=== PATIENT | female | born 1970 | race Caucasian/White ===

== ENCOUNTER 2016-06-30 14:37 | Emergency (ER) | payer MEDICAID, MEDICARE ==
[~2016-06-30] VITALS: Ht 162.6 cm; Wt 145.4 kg
[2016-06-30 14:41] VITALS: BP 128/94; PULSE 94; RESP 20; O2SAT 99
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
[2016-06-30] MEDS ORDERED: LORazepam 2 mg Tablet PO ONE (15:45)
[2016-06-30 16:22] LABS: BASOPHILS % (AUTO) 0.2 % (0-3); EOSINOPHILS % (AUTO) 0.3 % (0-5); MONOCYTES % (AUTO) 6.9 % (4-12); Mean Corpuscular Hemoglobin 28.2 pg (27.0-35.0); Mean Corpuscular Volume 84.8 fL (81-100); NEUTROPHILS % (AUTO) 58.2 % (40-74); Platelet Count 240 bil/L (150-400)
[2016-06-30] MEDS ORDERED: LORazepam 1 mg Tablet PO ONE (17:30)
[2016-06-30] MEDS ORDERED: OLANZapine Zydis ODT 5 mg Tablet PO ONE (17:30)
[2016-06-30 18:57] VITALS: BP 118/88; PULSE 71; O2SAT 97
[2016-06-30] MEDS ORDERED: BusPIRone 15 mg Dividose Tablet PO ONE (19:20)
[2016-06-30 21:59] VITALS: BP 121/94; PULSE 79; O2SAT 99
[2016-06-30 22:44] VITALS: BP 125/92; PULSE 81; O2SAT 94
--- NOTE | 2016-07-01 00:03 | ER ---
[address] [address] EMERGENCY DEPT ADMIT NOTE PATIENT: AARON KUMARI : 1970 MR#: [id number] ADMIT: 06/30/2016 JOB ID: [id number] ADDENDUM TO T-SHEET: DATE OF SERVICE: 06/30/2016. This is to indicate the [employer] [facility] is entirely down and I cannot access records or computer is I am dictating an addendum. Briefly, this is a 45-year-old female with a history of mild mental illness, as well as polysubstance abuse, who presents complaining that she feels overwhelmed and intermittently suicidal with thoughts of jumping into traffic, mainly over the fact that she feels that she has ruined her life secondary to methamphetamine abuse, and is seeking assistance. She reports she last used meth five days ago, later corrected to three days ago. It turns out that she has been using meth while her family was out of town and living in their house, so they are quite upset at her as well, as an acute stressor. She reports prior attempts years ago in the past, as well as a recent attempt, to kill herself through methamphetamine overdose a few weeks ago, for which she was reportedly seen in [place] and subsequently discharged. She has no current specific plan other than the vague thoughts of the car, just feels anxious and overwhelmed. On exam, she is anxious, tearful and mildly restless, but otherwise well appearing. Her vitals are normal. Her blood work is normal, except for TSH which is high-and it turns out this is in part because the patient is on a number of medications which she had self-discontinued several months ago, and this included her thyroid replacement. She does have a list of medications which have now been put on the chart. She received a dose of lorazepam after she gave a urine tox, she was seen by crisis/social service agency director, but there are no beds available today at crisis, but the social service agency director has been able to arrange for chemical dependency coil winder repair to come out tomorrow at 2 p.m., or thereabouts, for a recheck as the family that brought the patient in says they are absolutely not taking her back, she refuses to leave and continues to make vague thoughts of suicidal ideation though she does not get help for her methamphetamine and substance abuse. Both the DENTAL EQUIPMENT REPAIRER and I are of the impression the patient's really major issue is substance abuse, not a formal psychiatric one, and it is not clear if she would really benefit from psychiatric hospitalization in our opinion at this time, so the plan is to continue work on seeing if a bed becomes available at crisis and have chemical dependency evaluate her and see what resources might be available. The patient has been restarted on her regular medicines, I had provided her a single dose of olanzapine to help her settle down olanzapine is one of the medications that she normally is supposed to take at 20 mg a day. She received only 15 mg of the dose rather than the 20 because I had already dosed her earlier with the olanzapine. She did develop a little bit of insomnia and requested some medication. I had given a dose of hydroxyzine for this. The patient is being turned over to Dr. Garves at change of shift INITIAL IMPRESSION: 1. Polysubstance abuse. 2. Medication noncompliance. 3. Chronic hypothyroidism. 4. Suicidal ideation.
[2016-07-01 02:10] VITALS: BP 127/87; PULSE 63; O2SAT 96
[2016-07-01 05:05] VITALS: BP 130/70; PULSE 64; RESP 18; O2SAT 98
[2016-07-01 06:18] LABS: Hepatitis A Antibody IgM Negative (Negative); Hepatitis B Core Antibody IgM Negative (Negative)
[2016-07-01 09:02] VITALS: BP 121/83; PULSE 64; RESP 16; O2SAT 97
[2016-07-01 14:15] VITALS: BP 118/65; PULSE 67; RESP 16; O2SAT 97
[2016-07-01] MEDS ORDERED: LEVO88TA28 PO (14:55)
[2016-07-01 19:08] VITALS: BP 138/93; PULSE 64; O2SAT 95
== END 2016-07-01 19:09 | disposition home or self-care (01) ==
LOC: SED 14:37
DX: F19.10 Other psychoactive substance abuse, uncomplicated (principal); R45.851 Suicidal ideations; E03.9 Hypothyroidism, unspecified; Z91.19 Patient's noncompliance with other medical treatment and regimen; F43.10 Post-traumatic stress disorder, unspecified; Z88.5 Allergy status to narcotic agent; Z88.8 Allergy status to other drugs, medicaments and biological substances
CPT/HCPCS: 36415; 80053; 84439; 84443; 84703; 85025; 86705; 86709; 87340; 87341; 90791; 99284; G0472; G0480; Q0177

== ENCOUNTER 2016-10-06 03:33 | Inpatient (IN) | payer MEDICARE, MEDICAID ==
[2016-10-06] VITALS (9 sets, daily range): BP systolic 106–142; BP diastolic 60–74; PULSE 80–108; RESP 16–24; O2SAT 93–100
[~2016-10-06] VITALS: Ht 162.6 cm; Wt 128.2 kg
[~2016-10-06 03:33] MED LIST: LEVO88TA28 PO
--- NOTE | 2016-10-06 03:48 | ED.REPORT ---
HPI-Abd Pain F 40 and Over Date of Service Oct 06, 2016 ED Provider: Dr. Gilbert Love The patient is a 45 year old female with a history of anxiety, PTSD, depression , bipolar disorder, endometriosis, and SBO s/p suicide attempt by overdose (x5) and several abdominal surgeries presents to the ED due to midsternum chest and abdominal pain that radiates to the back. The pain has been intermittent since yesterday and increased in severity over the last few hrs. Pt reports pain with inhalation. She went to her PCP last week and was diagnosed with costochondritis. Nursing Notes Stated Complaint: ABDOMINAL PAIN Chief Complaint: General Complaint Nursing Notes Reviewed: Yes Allergies: Coded Allergies: droperidol (Verified Allergy, Severe, 10/06/16) metoclopramide (Verified Allergy, Severe, 10/06/16) prochlorperazine (Verified Allergy, Severe, 10/06/16) codeine (Verified Allergy, Mild, 10/06/16) morphine (Verified Allergy, Mild, 10/06/16) Scheduled Levothyroxine (Levoxyl) 88 Mcg Tablet 88 MCG PO DAILY General Time Seen by MD: 03:47 Chief Complaint Other (chest pain) Hx Obtained From: Patient Arrived By: Walk-in Sudden in Onset?: Yes Onset Occurred: Yesterday Symptom Duration: Since onset Progression since Onset: Gradually worsening Location: : Epigastric Quality: Painful Radiation: : Back Severity: Current: Moderate Recent Healthcare: Recent doctor visit Similar Sx Previous: Yes Past Medical History Past Medical History Notes: 06/30/16: Patient's states that she stopped her medicines 3-4 months ago, she thought that that would help her better-and tells me the list of medication she is supposed to be taking includes: Abilify Clonidine BuSpar Zoloft Olanzapine Levoxyl Estrogen Past Medical History Suicide attempts by overdose Hx SBO Past Surgical History Gastric bypass Strangulated bowel Hernia repair with mesh Endometriosis surgeries Cholecystectomy Partial colectomy "I have had 17 surgeries, those are the ones I remember" - 06/30/16 Reports: Cholecystectomy Smoking History Never Smoker Social History 06/30/16: "I have occasionally, and rarely use heroin once in a while, but I do meth regularly and it is my drug of choice". Denies IVDA Denies legal problems Alcohol Use: "Social" Drug Use: Meth Ambulatory Status Independent Review of Systems Constitutional: Denies: Chills, Fever Cardiovascular: Reports: Chest pain GI: Reports: Abdominal pain, Denies: Vomiting Musculoskeletal: Reports: Back pain Complete sys rev & neg: except as marked. Physical Exam Vital Signs Vital Signs (First) Date Time Temp Pulse Resp B/P Pulse Ox O2 Delivery O2 Flow Rate FiO2 10/06/16 03:40 37.5 108 17 142/64 100 Room Air Initial VS: Reviewed General/Constitutional: Awake, Alert Behavior: Positive: Anxious Appearance / Presentation: Positive: Obese, morbidly obvious discomfort no physiological distress bicycle peddling in pain wretching intermittently no veins identifiable Respiratory / Chest: Atraumatic, Breath sounds NL, Breath sounds = bilat, No respiratory distress Cardiovascular: Heart rate NL, Regular rhythm, Heart sounds NL Tenderness/Guarding/Rebound: Positive: Tender epigastric (to minimal palpation) Back: Atraumatic, Inspection NL, Non-tender Head / Eyes: Atraumatic, Normocephalic, PERRL, EOMI ENT: Atraumatic, Airway patent, Mucous membranes moist, Pharynx NL Skin: Atraumatic, Warm, Dry Neurologic: Oriented X3, Speech NL, No motor deficits Upper Extremity / MS: Atraumatic, Inspection NL, No deformity Lower Extremity / Pelvis / MS: Atraumatic, Inspection NL, No deformity Interpretation & Diagnostics Interpretation & Diagnostics: Utox clean Lab Results Interpretation Result Diagram: 10/06/16 0500 10/06/16 0500 Test 10/06/16 05:00 10/06/16 05:52 White Blood Count 7.9th/mm3 (3.8-10.1) Red Blood Count 4.04mil/mm3 (3.90-5.20) Hemoglobin 10.2g/dL (12.0-15.6) Hematocrit 33.4% (35.0-46.0) Mean Corpuscular Volume 82.7fL (81-100) Mean Corpuscular Hemoglobin 25.2pg (27.0-35.0) Mean Corpuscular Hemoglobin Concent 30.5% (32.0-37.0) Red Cell Distribution Width 15.7% (12.3-15.4) Platelet Count 237bil/L (150-400) Neutrophils (%) (Auto) 94.6% (40-74) Lymphocytes (%) (Auto) 3.3% (14-46) Monocytes (%) (Auto) 1.9% (4-12) Eosinophils (%) (Auto) 0.1% (0-5) Basophils (%) (Auto) 0% (0-3) Prothrombin Time 10.6sec (8.1-12.5) Prothromb Time International Ratio 0.99ratio Sodium Level 139mEq/L (134-144) Potassium Level 4.3mEq/L (3.5-5.2) Chloride Level 105mEq/L (97-108) Carbon Dioxide Level 20mmol/L (18-29) Blood Urea Nitrogen 20mg/dL (6-24) Creatinine 0.65mg/dL (0.57-1.00) Estimat Glomerular Filtration Rate 142mL/min (>59) Glucose Level 97mg/dL (60-99) Lactic Acid Level 1.4mmol/L (0.4-2.0) Calcium Level 8.9mg/dL (8.5-10.1) Magnesium Level 1.8mg/dL (1.6-2.6) Total Bilirubin 2.2mg/dL (0.0-1.2) Aspartate Amino Transf (AST/SGOT) 1357U/L (0-50) Alanine Aminotransferase (ALT/SGPT) 634U/L (0-32) Alkaline Phosphatase 328U/L (25-150) Total Creatine Kinase 62U/L (21-215) Total Protein 6.8g/dL (6.4-8.4) Albumin 3.8g/dL (3.4-5.0) Lipase 99U/L (13-60) Urine Color Dark yellow (YELLOW) Urine Appearance Clear (CLEAR,HAZY) Urine pH 5.5 (5.0-8.0) Urine Specific [place] 1.025 (1.003-1.035) Urine Protein Tracemg/dL (NEG,TRACE) Urine Glucose (UA) Negativemg/dL (NEGATIVE) Urine Ketones Negativemg/dL (NEGATIVE) Urine Occult Blood Negative (NEGATIVE) Urine Nitrite Negative (NEGATIVE) Urine Bilirubin Moderate (NEGATIVE) Urine Ictotest Positive (Negative) Urine Urobilinogen 4.0mg/dL (NORMAL) Urine Leukocyte Esterase Negative (NEGATIVE) Urine RBC 0-2/hpf (0-2) Urine WBC 0-5/hpf (0-5) Urine Epithelial Cells Many/hpf (NONE-MOD) Urine Crystals None seen (NONE SEEN) Urine Bacteria Many/hpf (NONE-FEW) Urine Hyaline Casts None/lpf (NONE) Urine Granular Casts None seen (NONE SEEN) Urine Waxy Casts None seen (NONE SEEN) Urine Red Blood Cell Casts None seen (NONE SEEN) Urine White Blood Cell Casts None seen (NONE SEEN) Urine Mucus None seen (None Seen) Urine Trichomonas None seen (NONE SEEN) Urine Yeast None (NONE SEEN) Urine Culture Reflexed Indicated ECG Interpretation ECG Interpretation: Prolonged QT interval Time: 05:09 Interpreted by: ED physician Rhythm / Conduction: Tachycardia (rate 100) Procedures Peripheral / EJ IV Start Peripheral / EJ IV Start: US guided Time: 04:50 Procedure Performed by: ED physician IV Site: External jugular left Re-Eval/Medical Decision Med Decision/Clinical Course 46-year-old with epigastric pain radiating to her back, prior history of multiple surgeries, proves to have multiple liver function abnormalities. She is transferred to Dr. Cuevas this morning for completion of her evaluation with CT pending at this time. Re-Evaluation/Progress #1: Time of Eval: 04:50 Re-Evaluation/Progress Note: Ultra sound guided left external jugular IV. Patient tolerated procedure well. Re-Evaluation/Progress #2: Time of Eval: 08:39 )( Re-Eval Abdomen: Soft, Tenderness Patient Status: Condition unchanged Re-Evaluation/Progress Note: Care assumed at [address] scan results are now available and show slight wall thickening of the ascending and descending colon concerning for colitis. No evidence of appendicitis. Patient is interviewed and reexamined. She has moderate abdominal pain without rebound or guarding not significantly changed. She does report that she has been having intermittent symptoms for approximately a month including diarrhea. She does report that she has had recent antibiotics. Given her elevated transaminases alkaline phosphatase lipase and bilirubin along with the colon inflammation will admit her for further evaluation. Presumptive diagnosis of colitis, pancreatitis is certainly a possibility. No explanation for the liver abnormalities. She is status post cholecystectomy. Dr Cuevas Consultation : Consulted With: Hospitalist Call Returned at: 08:59 Pole Peeler: Will see patient Note: Dr Arana Counseled Regarding: Diagnosis, Lab results, Need for follow-up, When/why to return to ED Discharge & Departure Shift Change Sign-Out Patient Care Transferred: Yes (to Dr Cuevas) Discussed Complaint(s): Yes Laboratory Evaluation: Ordered, not yet done Imaging Studies: Ordered, not yet done Primary Impression: Abdominal pain Additional Impression: Liver function test abnormality Disposition: ADMITTED TO HOSPITAL Discharge Condition All VS Reviewed: Yes Condition: Stable Referrals: [facility] (PCP) Care Transferred to: Dr. Clementine Cuevas Care Transferred at: 06:01 Scribe Attestation Portion of this note were transcribed by Brenna Scales. I, Dr. Love, personally performed the history, physical exam, and medical decision-making: I reviewed and confirmed the accuracy for the information in the transcribed note. Signed by: jessica Stone, 10/06/16 0500 copies to: [facility] Gilbert Love MD Oct 06, 2016 03:48 Brenna Scales Oct 06, 2016 04:04 Clementine Cuevas MD Oct 06, 2016 06:34
[2016-10-06] MEDS ORDERED: 0.9% Sodium Chloride 1,000 ML IV ONE ×2 (04:04→05:40)
[2016-10-06] MEDS ORDERED: Ketorolac 15 mg/mL Inj IVPUSH ONE ×2 (04:05→06:05)
[2016-10-06] MEDS ORDERED: Ondansetron 2 mg/mL 2 mL Inj IVPUSH ONE (04:05)
[2016-10-06] MEDS ORDERED: Pantoprazole 4 mg/mL 10 mL Inj IVPUSH ONE ×2 (04:05→11:30)
[2016-10-06] MEDS ORDERED: Iohexol 300 mg/mL 30 mL Inj PO ONE (04:20)
[2016-10-06] MEDS ORDERED: Ondansetron 8 mg ODT Tablet ONE (04:49)
[2016-10-06 05:13] LABS: BASOPHILS % (AUTO) 0 % (0-3); EOSINOPHILS % (AUTO) 0.1 % (0-5); MONOCYTES % (AUTO) 1.9 % (4-12); Mean Corpuscular Hemoglobin 25.2 pg (27.0-35.0); Mean Corpuscular Volume 82.7 fL (81-100); NEUTROPHILS % (AUTO) 94.6 % (40-74); Platelet Count 237 bil/L (150-400)
[2016-10-06 05:39] LABS: INR 0.99 ratio
[2016-10-06 05:56] LABS: Magnesium 1.8 mg/dL (1.6-2.6)
[2016-10-06 06:36] LABS: APPEARANCE,URINE CLEAR (CLEAR,HAZY); COLOR,URINE DARK YELLOW (YELLOW); OCCULT BLOOD,URINE NEGATIVE (NEGATIVE)
[2016-10-06 06:37] LABS: ICTOTEST,URINE POSITIVE (Negative); PH,URINE 5.5 (5.0-8.0)
--- NOTE | 2016-10-06 09:02 | DRSVH ---
PROCEDURE: CT ABDOMEN AND PELVIS WITH CONTRAST (PNL-7102) INDICATIONS: abdo pain, post gastric bypass TECHNIQUE: After the administration of oral and intravenous contrast, 5 mm thick sections acquired from the diap hragms to the symphysis. 5 mm thick coronal and sagittal reformats were performed. For radiation do se reduction, the following was used: automated exposure control, adjustment of mA and/or kV accordi ng to patient size. COMPARISON: None. FINDINGS: Image quality: Excellent. ABDOMEN: Lung bases: Lung bases are clear. Heart size is normal. Solid organs: Liver and spleen are normal in size and enhancement. Gallbladder surgically absent. Biliary system is non-dilated. Pancreas enhances normally. No adrenal nodules. Kidneys are normal in size and enhancement, without hydronephrosis. Peritoneum and bowel: Small amount of residual oral contrast material present in the distal esophagu s. There are postsurgical changes related to patient's history of gastric bypass. There is mild desce nding and descending colonic wall thickening with adjacent fat stranding and trace fluid seen in the left paracolic gutter. The appendix is upper limits of normal, technically indeterminate recommend cl inical/laboratory correlation. However, no periappendiceal stranding is seen. No evidence of bowel ob struction Nodes and vessels: No retroperitoneal or mesenteric adenopathy. Aorta and inferior vena cava are no rmal in caliber. Miscellaneous: Postsurgical changes related to presumed ventral hernia repair, with abdominal mesh. T here is midline intra-abdominal postsurgical stranding and change PELVIS: Genitourinary: The bladder is decompressed therefore unremarkable. Miscellaneous: No inguinal hernias or adenopathy. Bones: No suspicious bony lesions. No vertebral body compression fractures. IMPRESSION: Mild diffuse colonic wall thickening involving the ascending and descending segments as above raising possibility of infectious/inflammatory (less likely ischemic) colitis. Trace fluid along the left pa racolic gutter. Appendix at upper limits of normal in size, although no periappendiceal inflammatory change and this could be an anatomic variation in the appropriate clinical setting. Please correlate clinically. Status post cholecystectomy. No evidence of bowel obstruction. No abscess. Dictated by: Vj Kolb M.D. on 10/06/2016 at 8:55 Approved by: Vj Kolb M.D. on 10/06/2016 at 9:01
[2016-10-06 09:29] LABS: Bilirubin, Direct 1.6 mg/dL (0.0-0.3)
[2016-10-06] MEDS ORDERED: levoFLOXacin Inj 750 MG in IV Premix 1 EACH IV ONE (09:50)
[2016-10-06] MEDS ORDERED: metroNIDAZOLE Inj 1,000 MG in IV Premix 1 EACH IV ONE (09:50)
[2016-10-06] MEDS ORDERED: HYDR12.5 PO (10:50)
[2016-10-06] MEDS ORDERED: BUSP15TA3 PO (10:50)
[2016-10-06] MEDS ORDERED: TRAZ-115 PO ×2 (10:50)
[2016-10-06] MEDS ORDERED: ESTR1TAB24 PO (10:50)
[2016-10-06] MEDS ORDERED: NAPR550T44 PO (10:50)
[2016-10-06] MEDS ORDERED: ARIP10TA14 PO (10:50)
[2016-10-06] MEDS ORDERED: SERT50TA PO (10:50)
--- NOTE | 2016-10-06 10:51 | NUR ---
Admit Pt. arrived to 239-1 at 0952. Pt. alert and orriented. IJ site to left neck. Pt. reporting pain to upper chest and sternal area, radiating to back and lower belly; rated 7/10. Pt. reporting that she is "scared and nervous, very anxious." Pt. oriented to bed and room. Med rec completed; education booklet given on Advanced Directives. Pt. currently in bed, with parents at the bedside. Reported back to sydnie Moss RN to continue care.
--- NOTE | 2016-10-06 11:13 | PCM.HPMED ---
Subjective Date of Service Oct 06, 2016 Primary Provider: Admitting Physician: Colleen Arana MD Primary Care Physician: [facility] Attending Physician: Colleen Arana MD Chief Complaint: Epigastric pain, dry heaving, diarrhea History of Present Illness: 46-year-old female with multiple psychiatric disease, former math and alcohol abuser, recently finished drug rehabilitation p/w epigastric pain, dry heaves, diarrhea Patient stated that 2 weeks ago patient went to see PCP, complaining of chest pain. Therefore patient went to [facility] ED, patient underwent basic workup to rule out TN, diagnosed costochondritis. Since then patient took naproxen for a few days until 10 days ago. Yesterday, she will start noticing similar symptoms more on her epigastric area, radiated to her chest to her jaws, bilateral shoulder, her back, continued to have dry heaves, no vomiting. pain was more pressure like, pt took naproxen 500mg one tab twice day yesterday but pain continued, decided to come to ED. Pt was also resides in inpatient drug rehab in [facility] until recently but currently stayed with paraents who confirmed that pt has been really sober for her drugs, alcohols. Patient also c/o loose stools or watery diarrhea for few weeks, started 1/d but yesterday it was 3-4 times a day, brown, watery, no mucus/blood. pt also c/o suprapubic pain when urinated, mild urge, stated that she was diagnosed with interstitial cystitis, follow up . no history of heart disease and pulmonary disease. ROS: Denies fever, chills, chest pain, cough, sputum, no recent travel/sick contacts. In the emergency room, BP 140s, tachy to 108, afebrile, 100% onRA, labs were remarkable for transaminitis, elevated eulalio, LDH, PCT0.39, mild anemia, normal wbc but high poly. Review of Systems: Pertinent positives as noted in history of present illness. All other systems were reviewed and are negative Allergies Coded Allergies: droperidol (Verified Allergy, Severe, 10/06/16) metoclopramide (Verified Allergy, Severe, 10/06/16) prochlorperazine (Verified Allergy, Severe, 10/06/16) Sulfa (Sulfonamide Antibiotics) (Verified Allergy, Intermediate, hives, vomit, 10/06/16) erythromycin base (Verified Allergy, Intermediate, hives, 10/06/16) amoxicillin (Verified Allergy, Mild, hives, 10/06/16) codeine (Verified Allergy, Mild, 10/06/16) morphine (Verified Allergy, Mild, 10/06/16) Home Medications Abilify 10 mg daily Spironolactone 50 mg 3 times a day Estradiol deal 1 tablets daily Hydrochlorothiazide 12.5 mg daily Levothyroxine 88 g daily Naproxen 550 mg twice a day when necessary Sertraline 50 mg daily Trazodone 50 mg daily at bedtime Trazodone 12.5 mg every 4 when necessary PMH As described above in history of present illness Surgical History Gastric bypass Sigmoidectomy Surgery for strangulated bowels Umbilical hernia surgery twice Cholecystectomy Endometriosis surgery 6 times Hysterectomy Family History No history of CAD, inflammatory bowel disease Social History Hx Alcohol Use: Yes Hx Substance Use: Yes (meth, heroin-smoked, alcohol) Hx Tobacco Use: No Smoking Status: Never Smoker Additional Information Currently stays with parents Exam Vital Signs Vital Sign - Last Date Time Temp Pulse Resp B/P Pulse Ox O2 Delivery O2 Flow Rate FiO2 10/06/16 09:48 37.3 89 18 117/60 97 Room Air Intake and Output 10/05/16 10/05/16 10/06/16 Cumulative From/Thru 15:00 23:00 07:00 10/06/16 03:40 - 10/06/16 05:46 Intake Total 2000 ml 2000 ml Balance 2000 ml 2000 ml Intake IV Total 2000 ml 2000 ml Exam NAD, comfortably laying down on the bed no JVD, MMM, no LAD RRR, nl s1, s2 no mrg CTAB, no w,c S,ND,NT,normoactive BS+ warm, no edema, pulses 2/2 Lab and Diagnostics Result Diagram: 10/06/16 0500 10/06/16 0500 X-Rays, CTs and MRIs ROCEDURE: CT ABDOMEN AND PELVIS WITH CONTRAST ([id number]) INDICATIONS: abdo pain, post gastric bypass TECHNIQUE: After the administration of oral and intravenous contrast, 5 mm thick sections acquired from the diaphragms to the symphysis. 5 mm thick coronal and sagittal reformats were performed. For radiation dose reduction, the following was used : automated exposure control, adjustment of mA and/or kV according to patient size. COMPARISON: None. FINDINGS: Image quality: Excellent. ABDOMEN: Lung bases: Lung bases are clear. Heart size is normal. Solid organs: Liver and spleen are normal in size and enhancement. Gallbladder surgically absent. Biliary system is non-dilated. Pancreas enhances normally. No adrenal nodules. Kidneys are normal in size and enhancement, without hydronephrosis. Peritoneum and bowel: Small amount of residual oral contrast material present in the distal esophagus. There are postsurgical changes related to patient's history of gastric bypass. There is mild descending and descending colonic wall thickening with adjacent fat stranding and trace fluid seen in the left paracolic gutter. The appendix is upper limits of normal, technically indeterminate recommend clinical/laboratory correlation. However, no periappendiceal stranding is seen. No evidence of bowel obstruction Nodes and vessels: No retroperitoneal or mesenteric adenopathy. Aorta and inferior vena cava are normal in caliber. Miscellaneous: Postsurgical changes related to presumed ventral hernia repair, with abdominal mesh. There is midline intra-abdominal postsurgical stranding and change PELVIS: Genitourinary: The bladder is decompressed therefore unremarkable. Miscellaneous: No inguinal hernias or adenopathy. Bones: No suspicious bony lesions. No vertebral body compression fractures. IMPRESSION: Mild diffuse colonic wall thickening involving the ascending and descending segments as above raising possibility of infectious/inflammatory (less likely ischemic) colitis. Trace fluid along the left paracolic gutter. Appendix at upper limits of normal in size, although no periappendiceal inflammatory change and this could be an anatomic variation in the appropriate clinical setting. Please correlate clinically. Status post cholecystectomy. No evidence of bowel obstruction. No abscess. Dictated by: Vj Kolb M.D. on 10/06/2016 at 8:55 Approved by: Vj Kolb M.D. on 10/06/2016 at 9:01 Assessment & Plan Acute, active Epigastric pain, nausea, POA, likely due to acute colitis, possibly infectious, unlikely ischemic based on lactate, no watershed infarct on CT. CT showed Mild diffuse colonic wall thickening involving the ascending and descending segments -based on elevated PCT, sx, no CIx, will empirically start antibiotics, flagyl, Levaquin -stool PCR -NS 100cc/hr Acute transaminitis, POA, possibly induced with naproxen. AST>ALT, no pathology on liver, biliary tract on CAT scan. s/p cholecystectomy -will trend LFTs, bilirubin -Stop NSAID, awaits viral hap panel -UTOX given history of overdose Anemia, POA, possible hemolytic process with underlying SUSIE -will follow up iron panel, -continue Chronic, stable Anxiety, PTSD, depression, bipolar disorder, s/p suicide attempt by overdose (x5 ), continue all of her home meds, seems stable. hx of SBO and several abdominal surgeries, no abscess or obstruction on CAT scan endometriosis, continue as Estradiol dispo:Patient will be admitted with inpatient status with expectation of inpatient therapy for more than 2 midnights diet:NPO for now dvt ppx:LMWH Full code Time spent 35min Colleen Arana MD Oct 06, 2016 11:12
[2016-10-06] MEDS: 0.9% Sodium Chloride 1,000 ML IV SCH ×2 (11:58→19:50)
[2016-10-06] MEDS: Ondansetron 2 mg/mL 2 mL Inj IVPUSH PRN (12:14)
[2016-10-06] MEDS: BusPIRone 15 mg Dividose Tablet PO SCH ×2 (14:42→21:44)
[2016-10-06 16:00] LABS: BASOPHILS % (AUTO) 0.1 % (0-3)
[2016-10-06 16:02] LABS: MONOCYTES % (AUTO) 5.1 % (4-12); Mean Corpuscular Hemoglobin 25.6 pg (27.0-35.0); Mean Corpuscular Volume 80.3 fL (81-100)
[2016-10-06] MEDS: Pantoprazole 4 mg/mL 10 mL Inj IVPUSH SCH (16:28)
[2016-10-06] MEDS: HYDROmorphone 1 mg/mL Inj IVPUSH PRN (17:56)
[2016-10-06] MEDS ORDERED: metroNIDAZOLE Inj 1,000 MG in IV Premix 1 EACH IV SCH (20:30)
--- NOTE | 2016-10-06 22:00 | NUR ---
IV Pt IV removed by accident. IV therapy called and attempted multiple times. Could not get patent IV. notified. switched Flagyl to PO.
[2016-10-07] VITALS (9 sets, daily range): BP systolic 94–163; BP diastolic 58–78; PULSE 72–101; RESP 18–22; O2SAT 86–97
[2016-10-07 02:08] LABS: Hepatitis A Antibody IgM Negative (Negative); Hepatitis B Core Antibody IgM Negative (Negative)
[2016-10-07] MEDS: Ondansetron 8 mg ODT Tablet PO PRN ×3 (04:24→23:35)
--- NOTE | 2016-10-07 05:37 | NUR ---
Nausea/Pain/ Pt continues to have episodes of nausea which has not been relieved with PO Zofran. Pt continues to have abdominal pain that radiates to back. Pt states orange urine is "darker than before."
[2016-10-07] MEDS: 0.9% Sodium Chloride 1,000 ML IV SCH ×2 (05:50→19:45)
[2016-10-07 07:18] LABS: BASOPHILS % (AUTO) 0.1 % (0-3); EOSINOPHILS % (AUTO) 0.1 % (0-5); MONOCYTES % (AUTO) 5.7 % (4-12); Mean Corpuscular Hemoglobin 25.8 pg (27.0-35.0); Mean Corpuscular Volume 82.3 fL (81-100); NEUTROPHILS % (AUTO) 85.7 % (40-74); Platelet Count 199 bil/L (150-400)
[2016-10-07] MEDS: Pantoprazole 4 mg/mL 10 mL Inj IVPUSH SCH ×2 (07:30→17:16)
[2016-10-07 08:02] LABS: Phosphorus 2.6 mg/dL (2.5-4.9)
[2016-10-07 08:03] LABS: Magnesium 1.9 mg/dL (1.6-2.6)
[2016-10-07] MEDS ORDERED: levoFLOXacin Inj 750 MG in IV Premix 1 EACH IV SCH (08:30)
[2016-10-07] MEDS ORDERED: Sodium Chloride LOK Flush 10 mL Syringe IVFLUSH PRN ×2 (09:15)
[2016-10-07] MEDS ORDERED: Piperacillin-Tazo 3.375 Gm Inj 3.375 GM in Dextrose 5% Minibag Plus 50 ML IV ONE (09:35)
[2016-10-07] MEDS ORDERED: HYDROmorphone 1 mg/mL Inj IM ONE (10:00)
--- NOTE | 2016-10-07 10:15 | NUR ---
Social Work: Initial Assessment D: EMR reviewed. Pt is a 46 y/o female admitted for colitis and elevated liver enzymes per H&P. TORITO met with pt and family (SO and father) at bedside to conduct initial assessment. Pt was alert and oriented x3. SW explained role and wrote phone number on white board in room. Pt gave verbal consent to contact pt's father, Patrick Yu ([phone]) for discharge planning. SW provided DPOA/advanced directive ppw and encouraged pt to provide a copy to the hospital when complete. Pt's insurance is Medicare (A,B,D) (pt states she is on disability through [facility]) and PCP is Jamila Meng MD. Pt has no hx of a SNF. Pt has hx of HH in [place] but was not able to recall the name of the agency. Pt does not have LTC insurance or VA benefits. Pt is independent with ADLs. Pt does not own or use any DME. Pt drives. Pt is independent at baseline. Pt lives in [place] with her parents in a multi-story home with a level entrance and 25 stairs to the second level. Pt has a hx of ETOH and MET abuse. Pt states she recently left sober living and is 85-days clean. Pt's UA upon admission to the ER was negative for substances. Pt's father stated he will provide transport home when pt is medically stable to discharge. SW does not anticipate any discharge needs at this time but will continue to follow if needs arise. A: Pt who is independent at baseline. P: Pt's father stated he will provide transport home when pt is medically stable to discharge. TORITO does not anticipate any discharge needs at this time but will continue to follow if needs arise. DELANO Tay Addendum: 10/07/16 at 1025 by KEREN FARRIS Amended: Links added.
[2016-10-07] MEDS ORDERED: Cefepime 2,000 mg/100 mL D5W Minibag Plus IV ONE ×2 (11:10)
[2016-10-07] MEDS: Ondansetron 2 mg/mL 2 mL Inj IVPUSH PRN ×2 (11:46→19:34)
[2016-10-07] MEDS: BusPIRone 15 mg Dividose Tablet PO SCH ×3 (11:49→19:34)
[2016-10-07] MEDS: ARIPiprazole 10 mg Tablet PO SCH (11:51)
--- NOTE | 2016-10-07 12:50 | NUR ---
Case Management: At 10:30 am, gave and explained IMM to pt at bedside. Pt's SO and father present; per pt request, pt's father signed IMM. Signed original placed on hard chart, copy provided to pt. JAVIER Lam RN
--- NOTE | 2016-10-07 12:53 | NUR ---
ANXIETY / IV LINE PATIENT WAS SHAKING AND DIAPHORETIC DURING SHIFT CHANGE, IV THERAPIST UNABLE TO INSERT ANY ACCESS SO LAB DRAWS. PATIENT PLEASANT AND COOPERATIVE DESPITE OF ALL THE POKING. ORAL PRN MEDS GIVEN INSTEAD UNTIL LINE IS ESTABLISHED. DR. ORTIZ AWARE, DILAUDID 2 MG IM GIVEN TO RELIEVE PAIN. PICC LINE INSERTED, PATIENT WAS SEEN BY ID TEAM. PT SCHEDULED FOR MRCP AROUND 14:30. WILL CONTINUE TO MONITOR AT THIS TIME.
--- NOTE | 2016-10-07 13:17 | PCM.PNMED ---
Subjective Date of Service Oct 07, 2016 Subjective Patient developed fever after receiving flagyl, levaquin pt was still in intractable pain on epigastric and RUQ, noted up trending bilirubin and down trending LFTs, viral hep panel negative, spoke to , awats MRCP ID consult placed, abx changed from levaquin to Cefepime given PCN allergy- diffuse hives, zosyn was deferred. pt was kept in NPO Exam Vital Signs Vital Sign - Last Date Time Temp Pulse Resp B/P Pulse Ox O2 Delivery O2 Flow Rate FiO2 10/07/16 10:49 93 10/07/16 05:17 36.8 19 117/78 96 Room Air Intake and Output 10/06/16 10/06/16 10/07/16 Cumulative From/Thru 15:00 23:00 07:00 10/06/16 03:40 - 10/07/16 05:17 Intake Total 651 ml 100 ml 2751 ml Output Total 750 ml 550 ml 1300 ml Balance -99 ml -450 ml 1451 ml Intake Oral 100 ml 100 ml IV Total 651 ml 0 ml 2651 ml Output Urine Total 750 ml 550 ml 1300 ml # Bowel Movements 0 0 Exam NAD, comfortably laying down on the bed no JVD, MMM, no LAD RRR, nl s1, s2 no mrg CTAB, no w,c S, diffuse tenderness more on epigastric, RUQ, ND, hypoactiveBS warm, no edema, pulses 2/2 IVs and Medications Medications Reviewed: Medications were reviewed in detail Lab and Diagnostics Result Diagram: 10/07/16 0610 10/07/16 0610 X-Rays, CTs and MRIs ROCEDURE: CT ABDOMEN AND PELVIS WITH CONTRAST (PNL-7102) INDICATIONS: abdo pain, post gastric bypass TECHNIQUE: After the administration of oral and intravenous contrast, 5 mm thick sections acquired from the diaphragms to the symphysis. 5 mm thick coronal and sagittal reformats were performed. For radiation dose reduction, the following was used : automated exposure control, adjustment of mA and/or kV according to patient size. COMPARISON: None. FINDINGS: Image quality: Excellent. ABDOMEN: Lung bases: Lung bases are clear. Heart size is normal. Solid organs: Liver and spleen are normal in size and enhancement. Gallbladder surgically absent. Biliary system is non-dilated. Pancreas enhances normally. No adrenal nodules. Kidneys are normal in size and enhancement, without hydronephrosis. Peritoneum and bowel: Small amount of residual oral contrast material present in the distal esophagus. There are postsurgical changes related to patient's history of gastric bypass. There is mild descending and descending colonic wall thickening with adjacent fat stranding and trace fluid seen in the left paracolic gutter. The appendix is upper limits of normal, technically indeterminate recommend clinical/laboratory correlation. However, no periappendiceal stranding is seen. No evidence of bowel obstruction Nodes and vessels: No retroperitoneal or mesenteric adenopathy. Aorta and inferior vena cava are normal in caliber. Miscellaneous: Postsurgical changes related to presumed ventral hernia repair, with abdominal mesh. There is midline intra-abdominal postsurgical stranding and change PELVIS: Genitourinary: The bladder is decompressed therefore unremarkable. Miscellaneous: No inguinal hernias or adenopathy. Bones: No suspicious bony lesions. No vertebral body compression fractures. IMPRESSION: Mild diffuse colonic wall thickening involving the ascending and descending segments as above raising possibility of infectious/inflammatory (less likely ischemic) colitis. Trace fluid along the left paracolic gutter. Appendix at upper limits of normal in size, although no periappendiceal inflammatory change and this could be an anatomic variation in the appropriate clinical setting. Please correlate clinically. Status post cholecystectomy. No evidence of bowel obstruction. No abscess. Dictated by: Vj Kolb M.D. on 10/06/2016 at 8:55 Approved by: Vj Kolb M.D. on 10/06/2016 at 9:01 Assessment & Plan Acute, active Epigastric pain, nausea, POA, initially it was likely due to acute colitis, possibly infectious, unlikely ischemic based on lactate, no watershed infarct on CT. CT showed Mild diffuse colonic wall thickening involving the ascending and descending segments. Although non-dilated biliary duct, normal liver parenchyma, no GB, bilirubin was more obstructive pattern, concerning of choledocholithiasis, biliary sepsis -pt is clinically worsening, HD stable but developed breakthrough fever, PCT is trending up -appreciate GI recs, awaits MRCP, keep NPO -continue cefepime, flagyl, appreciate ID input -stool PCR if possible -NS 100cc/hr Acute transaminitis, POA, possibly induced with naproxen. AST>ALT, no pathology on liver, biliary tract on CAT scan. s/p cholecystectomy. viral hep panel negative. UDS clean. -LFTs trending down, direct bilirubin is up with obstructive pattern. trends for now -no NSAID, obvious hepatotoxins Anemia, POA, possible hemolytic process with underlying SUSIE -will follow up iron panel, -continue Chronic, stable Anxiety, PTSD, depression, bipolar disorder, s/p suicide attempt by overdose (x5 ), continue all of her home meds, seems stable. hx of SBO and several abdominal surgeries, no abscess or obstruction on CAT scan endometriosis, continue as Estradiol dispo:pending given clinical status, diet:NPO dvt ppx:LMWH Full code Time spent 35min Colleen Arana MD Oct 07, 2016 11:58
[2016-10-07] MEDS: HYDROmorphone 1 mg/mL Inj IVPUSH PRN ×3 (13:46→23:36)
--- NOTE | 2016-10-07 14:55 | CONS ---
[address] [address] CONSULTATION REPORT PATIENT: AARON KUMARI : 1970 MR#: [id number] ADMIT: 10/06/2016 JOB ID: [id number] DATE OF SERVICE: 10/07/2016 INFECTIOUS DISEASE CONSULTATION: REASON FOR CONSULTATION: Fever and elevated liver function tests. I thank Dr. Arana for this timely consult. HISTORY OF PRESENT ILLNESS: The patient is a 46-year-old woman with multiple medical problems, including a variety of psychiatric disorders, morbid obesity, history of alcoholism, history of pancreatitis and a history of multiple abdominal surgeries for gastric bypass for morbid obesity as well as surgery for incarcerated bowel, cholecystectomy and appendectomy. She was a practicing alcoholic until June of this year and was also a methamphetamine user, though not by the IV route, when she was admitted for one month earlier this spring to a [facility] following 28 days of inpatient detox. The patient was transferred to a clean and sober house where she stayed until about October 04. She tells us she left the clean and sober house after having been clean and sober herself for 84 days because so many people around her living in the house were relapsing. Following leaving the clean and sober house on or about October 03, she moved back to [place] to live with her parents. She was seen in the emergency department during this period of living at the clean and sober house with lower anterior chest pain which was diagnosed as costochondritis and she was given nonsteroidal anti-inflammatory agents. This did not completely resolve her symptoms and she then developed epigastric pain about a week prior to this admission which steadily worsened. Eventually the epigastric pain became associated with other symptomatology which led her to the emergency department and her admission on October 06. Some of the other involved symptoms included nausea, vomiting, fevers, chills and just within the past 24 hours drenching sweats. There was also some diarrhea associated with these symptoms up until the time of admission yesterday, but the diarrhea has strangely resolved spontaneously following admission. She describes her abdominal pain as severe and starting anteriorly and radiating to the back and associated, as noted, with nausea and vomiting. When asked if this is like her pancreatitis pain in the past, she says no. It is more like the pain she suffered with incarcerated bowel in the past. PAST MEDICAL HISTORY: 1. Morbid obesity status post gastric bypass. 2. Multiple psychiatric disorders including depression, history of bipolar disorder and PTSD. 3. Status post "17 abdominal surgeries " including gastric bypass surgery for incarcerated bowel, cholecystectomy and appendectomy. 4. History of pancreatitis, alcohol induced. 5. History of costochondritis. 6. Long history of alcohol abuse ending 84 days ago. 7. History of methamphetamine use but never by the intravenous route, only the inhaled route. SOCIAL HISTORY: The patient as noted is a recovering alcoholic having been sober for 84 days. She does not smoke cigarettes. 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 She currently lives on [place] with her parents. FAMILY HISTORY: Negative for TB in first degree relatives. REVIEW OF SYSTEMS: The patient has no significant headache. No visual complaints. No sinus complaints. No sore throat or trouble swallowing. She is having some shortness of breath with some dry cough. She has abdominal pain, which radiates to the back. She has been having a significant amount of nausea and vomiting with dry heaves at times. She had diarrhea up until yesterday which has resolved. No genitourinary symptoms such as dysuria. No particular complaint about her joints or new skin rash. Fever and chills have been noticed for several days with the addition of drenching sweats over the past 24 hours. Remainder of the review of systems is negative. PHYSICAL EXAMINATION: Reveals a morbidly obese woman sitting in her hospital bed in no acute distress. She came in in the manager beauty hours yesterday. She was afebrile for about 12 hours, then spiked to 38.6. Right now she is 37.8. Pulse 93, respiratory rate 20, blood pressure 163/58, saturating reasonably well but requiring 2 L to do so as she desaturated on room air. Examination of the patient in general reveals that she is obese with a BMI of 49 and she is clearly diaphoretic. Her hair is wet from sweating as is her hospital gown. She is awake and alert and able to give some appropriate history. Her eyes without conjunctivitis. She does have some borderline scleral icterus. No conjunctival hemorrhages are noted. Nose normal. Oral cavity without thrush, hairy leukoplakia or oral ulcers. Neck is reasonably supple. Difficult to examine because of her obesity but no obvious lymph nodes or JVD. Lungs are relatively clear posteriorly. Cardiac tones: Regular rate and rhythm without murmur. A little bit distant. Abdomen very obese, soft, and nontender. No organomegaly is appreciated. No suprapubic fullness. She does not have a Martinez catheter. The patient does complain when her right lower quadrant is compressed but is really quite soft and without any rebound or guarding. Bowel tones are basically normal. She has many many abdominal scars consistent with her history of 17 prior surgeries by her report. The extremities are without evidence of synovitis. There is no cellulitis or skin breakdown. The patient is neurologically intact. Has good motor and sensory function. LABORATORIES: Include white count 7700, platelet count 199, creatinine 0.7. Her LFTs are impressive in that she came in yesterday with AST of 1357, ALT 634 and alk phos 328. At that time the bilirubin was 2.2. Now just one day later a bilirubin has doubled to 4.5. This is primarily direct. Her AST has fallen to 430. Her ALT has fallen to 409 and her alk phos is 254. Albumin 3.3. Lipase -20. Procalcitonin 0.97. Urinalysis without white cells. Urine tox screen negative. Blood alcohol level was negative in the ED. Hepatitis C negative. Micro studies include one set of blood cultures apparently which is negative and a urine which is mixed abner. IMAGING: Includes just a CT scan of the abdomen which was done yesterday after admission and this shows mild diffuse colonic wall thickening. There is a trace of fluid along the left paracolic gutter. The gallbladder has been removed. The appendix is present but there is no para-appendiceal abnormality seen. She is status post cholecystectomy and no other evidence for intra-abdominal abscess. This is a confusing case of a woman who is a recent recovering alcoholic with a history of heavy meth use. She is admitted basically because of severe epigastric pain which radiates to the back which sounds like a pancreatitis but the CT of the pancreas and the lipase are completely normal. She also was noted to have very elevated LFTs in a pattern suggestive of alcoholic hepatitis with AST about double of the ALT. There is a cholestatic component to this hepatitis too as the bilirubin and alk phos are elevated. Parsimonious differential diagnosis is difficult to construct. Certainly one possibility is that she has pancreatitis induced either by a relapse of her alcoholism or perhaps through medications. Viral hepatitis seems unlikely unless this is hepatitis E and we have had a couple case of hepatitis E here in [facility]. Primary biliary cirrhosis is possible but unlikely given the acuteness of the problem. Also possible would be an ascending cholangitis or retained common bile duct stone type process but this seems unlikely in view of the fact the CT is negative and she had a cholecystectomy 14 years ago. With respect to her bowel, C. difficile is certainly possible but would not account in and of itself for the elevation in her liver function tests. RECOMMENDATIONS: 1. I note that she has been started on cefepime as well as oral and IV Flagyl. I would skip the IV Flagyl as it adds really nothing to the oral Flagyl as long as the patient can take antibiotics orally. 2. I would continue with the cefepime for the time being as the patient has spent a considerable time inside at an inpatient hospital in the last 90 days while we attempt to sort out what is going on here. 3. Repeat blood culture should be done should she spike again. 4. A stool PCR has been ordered and we await the multiplex stool PCR if she develops diarrhea again. 5. Antimitochondrial antibody will be checked. 6. Will continue to follow this complex patient with you.
--- NOTE | 2016-10-07 15:08 | DRSVH ---
PROCEDURE: X-RAY PICC LINE PLACEMENT BY NURSE ([id number]) INDICATIONS: for iv access COMPARISON: None. FINDINGS: PICC was placed by the intravenous therapy team from the right side. Fluoroscopic spot fi lm demonstrates tip projected over the lower SVC. IMPRESSION: Tip of PICC projected over the lower SVC . Dictated by: Marty WILSON Interpreted: Vj Kolb MD on 10/07/2016 at 12:13 Approved by: Vj Kolb M.D. on 10/07/2016 at 15:06
--- NOTE | 2016-10-07 15:57 | DRSVH ---
PROCEDURE: MR ABDOMEN MRCP INDICATIONS: Elevated bili. TECHNIQUE: Coronal HASTE through the abdomen, axial 2-D FLASH in- and [id number], and breath-hold T2 FSE with fat saturation through the biliary system and pancreas. Oblique coronal and axial thin-slice HASTE, radial thick-slab HASTE centered on the extrahepatic bile ducts. COMPARISON: [facility], CT, CT ABD PELVIS W CON, 10/06/2016, 6:37. FINDINGS: Image quality: Evaluation limited due to motion artifact and signal drop out in the distal common eulalio e duct. Pancreas and biliary system: The gallbladder is surgically absent. There is dilatation of the cysti c duct remnant with a small fluid collection in the gallbladder fossa measuring approximately 4.3 x 1 .3 cm. There is mild intra-hepatic biliary ductal dilatation with mild periportal edema. The common bile duct is dilated, measuring up to 11 mm. No discrete filling defect is identified but evaluatio n is limited at the ampulla of Vater secondary to decreased signal. The pancreatic duct is normal in caliber. There is a small amount of peripancreatic fluid along the head of the pancreas. Other solid organs: Liver and spleen are normal in size. No adrenal nodules. Kidneys demonstrate n o hydronephrosis. Nodes and vessels: No retroperitoneal or mesenteric adenopathy by size criteria. Aorta and inferior vena cava are normal in size. Bowel and peritoneum: Visualized bowel loops are normal in caliber. Lung bases: No basal pleural effusions. Heart size is normal. Bones and soft tissues: No ventral hernias. Bone marrow is of normal overall signal. IMPRESSION: 1. Status post cholecystectomy with a small fluid collection in the gallbladder fossa. The differen tial includes a small seroma, biloma, or abscess. Recommend correlation clinically and further evalu ation with contrast enhanced images if indicated. 2. Small amount of fluid adjacent to the head the pancreas may track from the gallbladder fossa or r eflect pancreatitis. Recommend correlation with laboratory values. 3. Intra-and extra hepatic biliary ductal dilatation without a discrete filling defect demonstrated but evaluation is limited distally at the ampulla secondary to decreased signal. Dictated by: Justyn Jones M.D. on 10/07/2016 at 15:28 Approved by: Justyn Jones M.D. on 10/07/2016 at 15:56
[2016-10-07 16:09] LABS: BASOPHILS % (AUTO) 0 % (0-3); EOSINOPHILS % (AUTO) 0.1 % (0-5); MONOCYTES % (AUTO) 6.2 % (4-12); Mean Corpuscular Hemoglobin 25.5 pg (27.0-35.0); Mean Corpuscular Volume 83.8 fL (81-100); NEUTROPHILS % (AUTO) 89.6 % (40-74); Platelet Count 213 bil/L (150-400)
[2016-10-07] MEDS ORDERED: Piperacillin-Tazo 3.375 Gm Inj 3.375 GM in Dextrose 5% Minibag Plus 50 ML IV SCH (16:30)
[2016-10-07 16:32] LABS: Phosphorus 2.4 mg/dL (2.5-4.9)
[2016-10-07 19:24] LABS: Unsaturated Iron Binding 309.1 ug/dL
[2016-10-07] MEDS: Cefepime 2,000 mg/100 mL D5W Minibag Plus IV SCH ×2 (19:34)
--- NOTE | 2016-10-07 20:07 | CONS ---
[address] [address] CONSULTATION REPORT PATIENT: AARON KUMARI : 1970 MR#: [id number] ADMIT: 10/06/2016 JOB ID: [id number] DATE OF SERVICE: 10/07/2016 REASON FOR CONSULTATION: Elevated liver function tests, epigastric pain and fever. HISTORY OF PRESENT ILLNESS: The patient is a 46-year-old woman who has a history of alcohol abuse and methamphetamine use. She last used methamphetamines and alcohol back in July of this year and she then was subsequently admitted to an inpatient substance abuse program at [place] [facility]. She was there for approximately 28 days and then she went to [facility] to live and this is a place for people who are clean and sober from alcohol and drug use. She was there for approximately 84 days, and then she noticed that there were several people who were relapsing with alcohol and drugs and, therefore, she decided to move to [place] to live with her parents. She reports that while moving approximately two weeks ago, she lifted a heavy box and then began having pain in the epigastric area. She was then seen by her primary care physician and was diagnosed with costochondritis and was given naproxen that she has been taking since that time. This did not completely relieve her symptoms. Then the day prior to admission, she noticed that her epigastric pain worsened and she also had nausea and vomiting, subjective fevers and chills. Therefore, she came to the emergency department here. She also reports that three days prior, she did try self medicating with Pepto-Bismol and Tums which did not help with pain. PAST MEDICAL HISTORY: Her past medical history is significant for history of recurrent pancreatitis. She reports she has had three episodes of pancreatitis within the last seven years. These are all following her gallbladder surgery which was performed in 1989. Other past medical history is significant for bipolar disorder, posttraumatic stress disorder and depression. Other past medical history includes polysubstance abuse. PAST SURGICAL HISTORY: Includes cholecystectomy in late . At that same time, she reports having undergone a right hemicolectomy secondary to what she described as gangrenous bowel. She also has a history of gastric bypass surgery that was performed in 2006. She describes it as a Petey-en-Y gastric bypass. Prior to her gastric bypass surgery, she weighed approximately 405 pounds. She has also had history of some bowel obstruction which required surgery. She has also had a hysterectomy. She has also had an appendectomy as well. SOCIAL HISTORY: Significant for, as mentioned above, polysubstance abuse. 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 FAMILY HISTORY: Noncontributory. HOME MEDICATIONS: Include Abilify, spironolactone 50 mg three times a day, I am unclear as to why she is on it, estradiol, hydrochlorothiazide, levothyroxine, naproxen 550 mg twice a day as needed, sertraline, trazodone. She did also mention that she was taking methocarbamol but has been trying to limit its use. Her current hospital medications include cefepime 2 g IV q. 8, Lovenox 40 mg subcu daily, Abilify 10 mg p.o. daily, Estrace 1 mg p.o. daily, Zoloft 50 mg p.o. daily, hydrochlorothiazide 12.5 mg p.o. daily, ondansetron 8 mg q.4 h. p.r.n., metronidazole 500 mg p.o. q.8 h., trazodone 50 mg p.o. q.h.s., Ultram 100 mg p.o. q.6 h. hours p.r.n. for pain, Dilaudid q.4 h. p.r.n. and IV push, pantoprazole 40 mg IV b.i.d., BuSpar 15 mg t.i.d., levothyroxine 88 mcg daily, trazodone 12.5 mg q.4 h. for anxiety and depression. ALLERGIES: 1. SULFONAMIDE ANTIBIOTICS. 2. AMOXICILLIN. 3. CODEINE. 4. DROPERIDOL. 5. ERYTHROMYCIN. 6. METOCLOPRAMIDE. 7. MORPHINE. 8. CHLORPROMAZINE. PHYSICAL EXAMINATION: Her T-max was 38.6 and that occurred on October 06, 2016 at 21:59. Her T current is 36.7, her pulse is 85, her blood pressure is 108/74, her respiratory rate is 18, O2 saturation 97% on 2 L nasal cannula. Generally, she is a morbidly obese woman in no apparent distress who is oriented to person, place, and time and answers questions appropriately. HEENT: No pallor. No icterus appreciated. Oropharynx is clear. Chest exam is clear to auscultation bilaterally anteriorly. Cardiovascular exam: S1, S2 heard. Abdomen is obese. She is tender in the epigastric and xiphoid process area. Bowel sounds are present. Extremities without edema. LABORATORY DATA: From today shows a sodium of 142, potassium 3.7, chloride of 109, CO2 of 21, BUN of 23, creatinine is 1.02 and that is up from 0.7 from earlier today, calcium is 8.6, her phosphorus is 2.4, magnesium is 2, total bilirubin is 4.9, and that is up from 4.5, her direct bilirubin is 4, her AST is 338, down from 430, her ALT is 364, down from 409, alkaline phosphatase is 273 and that is slightly up from 254. Her total protein is 6.1. Her albumin is 3.5 and her procalcitonin is 3.17. Her lipase was 20. Her CBC on admission was white blood cell count of 7.9, hemoglobin of 10.2, hematocrit of 33.4 with an MCV of 82.7. Her platelet count was 237, 94% neutrophils, 3.3% lymphocytes and 1.9% monocytes. Her CBC today shows a white blood cell count of 9.3, hemoglobin of 9.6, hematocrit of 31.6, MCV 83.8, platelet count of 213, haptoglobin is 205. Her PT is 10.6. INR is 0.99. Her urine drug screen was negative for cannabis, cocaine, benzodiazepines, amphetamines, barbiturates, methadone and opiates. Urine is positive for moderate bili and many bacteria and many epithelial cells. A/P mitochondrial and smooth muscle anti body titer is pending. Hepatitis A, B and C serologies are negative. IMAGING: Her imaging tests that she has had done was a CT scan done yesterday of the abdomen and pelvis with contrast which shows that her liver and spleen are normal in size and enhancement. Gallbladder surgically absent. Biliary system is nondilated and pancreas enhances normally. The kidneys are normal in size and enhancement without hydronephrosis. There is a small amount of residual contrast material present in the distal esophagus. There are postsurgical changes related to the patient's history of gastric bypass. There is mild descending colonic wall thickening with adjacent fat stranding and trace fluid seen in the left paracolic gutter. The appendix is upper limits of normal technically indeterminate clinically, however, no apparent appendiceal stranding is seen and no evidence of bowel obstruction. MRCP that was subsequently done shows that the gallbladder is surgically absent. There is dilation of the cystic duct remnant with a small fluid collection in the gallbladder fossa measuring 4.3 x 1.3 cm. There is mild intrahepatic biliary dilation with mild periportal edema. The common bile duct is dilated measuring up to 11 mm. No discrete filling defect is identified, but evaluation is limited at the ampulla of Vater secondary to decreased signal. The pancreatic duct is normal. There is a small amount of peripancreatic fluid along the head of the pancreas. Liver and spleen are normal in size. ASSESSMENT AND PLAN: 1. A 46-year-old woman with a history of polysubstance abuse presenting with epigastric pain and cholestatic liver function tests and fever. Imaging does not show any discrete evidence of any common bile duct stones or biliary pathology. Her aminotransferases seem to be trending down and would continue to follow this along with her bilirubin. I would recommend sending off autoimmune serologies to rule out for any underlying autoimmune disease. However, more importantly, I would recommend obtaining her labs from her inpatient admission following in July when she reports having had blood work done and imaging tests done, and compare to see if maybe this is chronic secondary to her history of alcohol abuse. Agree with the IV antibiotics and follow cultures. With regards to her epigastric pain, agree with antacids that have been started and will also recommend adding Carafate to see if this gives her any further benefit. 2. Normocytic anemia. Unclear of the etiology of her anemia. Would recommend checking iron studies, vitamin B12, and folate and will plan for upper endoscopy to evaluate epigastric pain as well as anemia that is present. Reasons for epigastric pain and anemia in a post bypass patient could be marginal ulcers at the site of her anastomosis. 3. Diarrhea. This seems to have resolved, however, agree with Infectious Disease about obtaining stool studies. Thanks for allowing me to participate in this patient's care. If you have any further questions, please do not hesitate to contact me. IRASEMA
[2016-10-07] MEDS: Sucralfate 100 mg/mL 10 mL Suspension PO SCH (21:09)
[2016-10-08] MEDS: Cefepime 2,000 mg/100 mL D5W Minibag Plus IV SCH ×4 (04:04→12:12)
[2016-10-08 05:55] VITALS: BP 98/57; PULSE 92; RESP 20; O2SAT 99
[2016-10-08] MEDS: Ondansetron 8 mg ODT Tablet PO PRN ×2 (06:06→15:23)
[2016-10-08] MEDS: HYDROmorphone 1 mg/mL Inj IVPUSH PRN ×3 (06:07→15:10)
--- NOTE | 2016-10-08 06:45 | NUR ---
Shift note patient medicated for nausea and pain 2mg dilaudid and 8mg zofran most effective did wake up and took sip of water started coughing stating her throat felt swollen did vss checked lung sounds wnl partially related to anxiety eventually resolved
[2016-10-08 06:50] LABS: BASOPHILS % (AUTO) 0.2 % (0-3); EOSINOPHILS % (AUTO) 0.2 % (0-5); MONOCYTES % (AUTO) 10.8 % (4-12); Mean Corpuscular Hemoglobin 24.9 pg (27.0-35.0); Mean Corpuscular Volume 84.7 fL (81-100); NEUTROPHILS % (AUTO) 68.3 % (40-74); Platelet Count 182 bil/L (150-400)
[2016-10-08 07:39] LABS: Magnesium 2.3 mg/dL (1.6-2.6); Phosphorus 3.9 mg/dL (2.5-4.9)
[2016-10-08] MEDS: Pantoprazole 4 mg/mL 10 mL Inj IVPUSH SCH (08:07)
[2016-10-08] MEDS: BusPIRone 15 mg Dividose Tablet PO SCH ×2 (08:09→14:20)
[2016-10-08] MEDS: Sucralfate 100 mg/mL 10 mL Suspension PO SCH ×2 (08:09→14:20)
--- NOTE | 2016-10-08 09:14 | PCM.PNMED ---
Subjective Date of Service Oct 08, 2016 Subjective pt still has no appetite, looked uncomfortable, moving her legs constantly, required Exam Vital Signs Vital Sign - Last Date Time Temp Pulse Resp B/P Pulse Ox O2 Delivery O2 Flow Rate FiO2 10/08/16 05:55 36.7 92 20 98/57 99 Room Air 10/07/16 16:30 2.00 Intake and Output 10/07/16 10/07/16 10/08/16 Cumulative From/Thru 15:00 23:00 07:00 10/06/16 03:40 - 10/08/16 06:04 Intake Total 509 ml 878 ml 4138 ml Output Total 500 ml 400 ml 2200 ml Balance 9 ml 478 ml 1938 ml Intake Oral 100 ml IV Total 509 ml 878 ml 4038 ml Output Urine Total 500 ml 400 ml 2200 ml # Bowel Movements 0 0 IVs and Medications Medications Reviewed: Medications were reviewed in detail Lab and Diagnostics Result Diagram: 10/08/16 0646 10/08/16 0646 X-Rays, CTs and MRIs PROCEDURE: MR ABDOMEN MRCP INDICATIONS: Elevated bili. TECHNIQUE: Coronal HASTE through the abdomen, axial 2-D FLASH in- and [id number], and breath-hold T2 FSE with fat saturation through the biliary system and pancreas. Oblique coronal and axial thin-slice HASTE, radial thick-slab HASTE centered on the extrahepatic bile ducts. COMPARISON: [facility], CT, CT ABD PELVIS W CON, 10/06/2016, 6:37. FINDINGS: Image quality: Evaluation limited due to motion artifact and signal drop out in the distal common bile duct. Pancreas and biliary system: The gallbladder is surgically absent. There is dilatation of the cystic duct remnant with a small fluid collection in the gallbladder fossa measuring approximately 4.3 x 1.3 cm. There is mild intra- hepatic biliary ductal dilatation with mild periportal edema. The common bile duct is dilated, measuring up to 11 mm. No discrete filling defect is identified but evaluation is limited at the ampulla of Vater secondary to decreased signal. The pancreatic duct is normal in caliber. There is a small amount of peripancreatic fluid along the head of the pancreas. Other solid organs: Liver and spleen are normal in size. No adrenal nodules. Kidneys demonstrate no hydronephrosis. Nodes and vessels: No retroperitoneal or mesenteric adenopathy by size criteria. Aorta and inferior vena cava are normal in size. Bowel and peritoneum: Visualized bowel loops are normal in caliber. Lung bases: No basal pleural effusions. Heart size is normal. Bones and soft tissues: No ventral hernias. Bone marrow is of normal overall signal. IMPRESSION: 1. Status post cholecystectomy with a small fluid collection in the gallbladder fossa. The differential includes a small seroma, biloma, or abscess. Recommend correlation clinically and further evaluation with contrast enhanced images if indicated. 2. Small amount of fluid adjacent to the head the pancreas may track from the gallbladder fossa or reflect pancreatitis. Recommend correlation with laboratory values. 3. Intra-and extra hepatic biliary ductal dilatation without a discrete filling defect demonstrated but evaluation is limited distally at the ampulla secondary to decreased signal. Dictated by: Justyn Jones M.D. on 10/07/2016 at 15:28 Approved by: Justyn Jones M.D. on 10/07/2016 at 15:56 ROCEDURE: CT ABDOMEN AND PELVIS WITH CONTRAST ([id number]) INDICATIONS: abdo pain, post gastric bypass TECHNIQUE: After the administration of oral and intravenous contrast, 5 mm thick sections acquired from the diaphragms to the symphysis. 5 mm thick coronal and sagittal reformats were performed. For radiation dose reduction, the following was used : automated exposure control, adjustment of mA and/or kV according to patient size. COMPARISON: None. FINDINGS: Image quality: Excellent. ABDOMEN: Lung bases: Lung bases are clear. Heart size is normal. Solid organs: Liver and spleen are normal in size and enhancement. Gallbladder surgically absent. Biliary system is non-dilated. Pancreas enhances normally. No adrenal nodules. Kidneys are normal in size and enhancement, without hydronephrosis. Peritoneum and bowel: Small amount of residual oral contrast material present in the distal esophagus. There are postsurgical changes related to patient's history of gastric bypass. There is mild descending and descending colonic wall thickening with adjacent fat stranding and trace fluid seen in the left paracolic gutter. The appendix is upper limits of normal, technically indeterminate recommend clinical/laboratory correlation. However, no periappendiceal stranding is seen. No evidence of bowel obstruction Nodes and vessels: No retroperitoneal or mesenteric adenopathy. Aorta and inferior vena cava are normal in caliber. Miscellaneous: Postsurgical changes related to presumed ventral hernia repair, with abdominal mesh. There is midline intra-abdominal postsurgical stranding and change PELVIS: Genitourinary: The bladder is decompressed therefore unremarkable. Miscellaneous: No inguinal hernias or adenopathy. Bones: No suspicious bony lesions. No vertebral body compression fractures. IMPRESSION: Mild diffuse colonic wall thickening involving the ascending and descending segments as above raising possibility of infectious/inflammatory (less likely ischemic) colitis. Trace fluid along the left paracolic gutter. Appendix at upper limits of normal in size, although no periappendiceal inflammatory change and this could be an anatomic variation in the appropriate clinical setting. Please correlate clinically. Status post cholecystectomy. No evidence of bowel obstruction. No abscess. Dictated by: Vj Kolb M.D. on 10/06/2016 at 8:55 Approved by: Vj Kolb M.D. on 10/06/2016 at 9:01 Assessment & Plan Acute, active Epigastric pain, nausea, POA, initially it was likely due to acute colitis, possibly infectious, unlikely ischemic based on lactate, no watershed infarct on CT. CT showed Mild diffuse colonic wall thickening involving the ascending and descending segments. Although non-dilated biliary duct, normal liver parenchyma, no GB, bilirubin was more obstructive pattern, concerning of choledocholithiasis, biliary sepsis.However MRCP showed fluid collection in GB fossa, adjacent to pancreatic head, intra/extra biliary ductal dilatation. no definite obstruction, -pt is clinically not improving, HD stable but still febrile, PCT is trending up, bilirubin stable. Give unusual findings in MRCP, autoimmune or alcoholic hepatitis suggested per . Given this fluid collection, will consider surgical input as well if clinically worsening -awaits autoimmune panel -appreciate GI recs, keep NPO -continue cefepime, flagyl, appreciate ID input -stool PCR if possible -NS 100cc/hr Acute transaminitis, POA, possibly induced with naproxen. AST>ALT, no pathology on liver, biliary tract on CAT scan. s/p cholecystectomy. viral hep panel negative. UDS clean. -LFTs trending down, direct bilirubin is up with obstructive pattern. trends for now -no NSAID, obvious hepatotoxins Anemia, POA, possible hemolytic process with underlying SUSIE -will follow up iron panel, -continue Chronic, stable Anxiety, PTSD, depression, bipolar disorder, s/p suicide attempt by overdose (x5 ), continue all of her home meds, seems stable. hx of SBO and several abdominal surgeries, no abscess or obstruction on CAT scan endometriosis, continue as Estradiol dispo:pending given clinical status, diet:NPO dvt ppx:LMWH Full code Time spent 35min Colleen Arana MD Oct 08, 2016 09:07
[2016-10-08 09:39] LABS: Bilirubin, Direct 4.2 mg/dL (0.0-0.3)
[2016-10-08 10:00] VITALS: BP 121/83; PULSE 87; RESP 18; O2SAT 99
[2016-10-08] MEDS: 0.9% Sodium Chloride 1,000 ML IV SCH ×2 (10:03→11:50)
[2016-10-08 10:32] VITALS: PULSE 97
--- NOTE | 2016-10-08 11:00 | NUR ---
PATIENT CONCERN PT INFORM THAT MOM USUALLY WILL BE A CHALLENGE IN DEALING WITH HER CARE. SHE PREFERS STAFF NOT TO RELEASE ANY INFORMATION WHEN MOM INSIST AND SHE WILL DIRECTLY ADDRESS THE SITUATION HERSELF.
--- NOTE | 2016-10-08 11:56 | PCM.DIMED ---
Discharge Instructions Date of Service Oct 08, 2016 Dates of Hospitalization Oct 06, 2016 at 09:52 Discharge Diagnosis Discharge Diagnosis Obstructive hyperbilirubinemia Probable sepsis due to ascending cholangitis Acute transaminitis, Anemia, Anxiety, PTSD, depression, bipolar disorder, s/p suicide attempt by overdose (x5 ) hx of SBO and several abdominal surgeries, endometriosis Patient Instructions Follow-up plan You are going to [facility] for acute intervention.. You were accepted by doctor, Dr.Lieu De Oliveira [facility] doctor. Please continue to follow with the doctors at [facility] Colleen Arana MD Oct 08, 2016 11:56
--- NOTE | 2016-10-08 12:03 | PCM.DC.MED ---
Discharge Summary Date of Service Oct 08, 2016 Dates of Hospitalization Date of Hospital Admission Oct 06, 2016 at 09:52 Date of Discharge: Oct 08, 2016 Providers: Admitting Physician: Colleen Arana MD Primary Care Physician: Rhonda Attending Physician: Colleen Arana MD Diagnosis at Time of Discharge Diagnosis at Time of Discharge Obstructive jaundice Probable sepsis due to ascending cholangitis Acute transaminitis, IRIS, likely contrast induced Anemia, Anxiety, PTSD, depression, bipolar disorder, s/p suicide attempt by overdose (x5 ) hx of SBO and several abdominal surgeries, Endometriosis Consultations ID, GI, Procedures XRay, CTs & MRIs PROCEDURE: MR ABDOMEN MRCP INDICATIONS: Elevated bili. TECHNIQUE: Coronal HASTE through the abdomen, axial 2-D FLASH in- and [id number], and breath-hold T2 FSE with fat saturation through the biliary system and pancreas. Oblique coronal and axial thin-slice HASTE, radial thick-slab HASTE centered on the extrahepatic bile ducts. COMPARISON: [facility], CT, CT ABD PELVIS W CON, 10/06/2016, 6:37. FINDINGS: Image quality: Evaluation limited due to motion artifact and signal drop out in the distal common bile duct. Pancreas and biliary system: The gallbladder is surgically absent. There is dilatation of the cystic duct remnant with a small fluid collection in the gallbladder fossa measuring approximately 4.3 x 1.3 cm. There is mild intra- hepatic biliary ductal dilatation with mild periportal edema. The common bile duct is dilated, measuring up to 11 mm. No discrete filling defect is identified but evaluation is limited at the ampulla of Vater secondary to decreased signal. The pancreatic duct is normal in caliber. There is a small amount of peripancreatic fluid along the head of the pancreas. Other solid organs: Liver and spleen are normal in size. No adrenal nodules. Kidneys demonstrate no hydronephrosis. Nodes and vessels: No retroperitoneal or mesenteric adenopathy by size criteria. Aorta and inferior vena cava are normal in size. Bowel and peritoneum: Visualized bowel loops are normal in caliber. Lung bases: No basal pleural effusions. Heart size is normal. Bones and soft tissues: No ventral hernias. Bone marrow is of normal overall signal. IMPRESSION: 1. Status post cholecystectomy with a small fluid collection in the gallbladder fossa. The differential includes a small seroma, biloma, or abscess. Recommend correlation clinically and further evaluation with contrast enhanced images if indicated. 2. Small amount of fluid adjacent to the head the pancreas may track from the gallbladder fossa or reflect pancreatitis. Recommend correlation with laboratory values. 3. Intra-and extra hepatic biliary ductal dilatation without a discrete filling defect demonstrated but evaluation is limited distally at the ampulla secondary to decreased signal. Dictated by: Justyn Jones M.D. on 10/07/2016 at 15:28 Approved by: Justyn Jones M.D. on 10/07/2016 at 15:56 ROCEDURE: CT ABDOMEN AND PELVIS WITH CONTRAST ([id number]) INDICATIONS: abdo pain, post gastric bypass TECHNIQUE: After the administration of oral and intravenous contrast, 5 mm thick sections acquired from the diaphragms to the symphysis. 5 mm thick coronal and sagittal reformats were performed. For radiation dose reduction, the following was used : automated exposure control, adjustment of mA and/or kV according to patient size. COMPARISON: None. FINDINGS: Image quality: Excellent. ABDOMEN: Lung bases: Lung bases are clear. Heart size is normal. Solid organs: Liver and spleen are normal in size and enhancement. Gallbladder surgically absent. Biliary system is non-dilated. Pancreas enhances normally. No adrenal nodules. Kidneys are normal in size and enhancement, without hydronephrosis. Peritoneum and bowel: Small amount of residual oral contrast material present in the distal esophagus. There are postsurgical changes related to patient's history of gastric bypass. There is mild descending and descending colonic wall thickening with adjacent fat stranding and trace fluid seen in the left paracolic gutter. The appendix is upper limits of normal, technically indeterminate recommend clinical/laboratory correlation. However, no periappendiceal stranding is seen. No evidence of bowel obstruction Nodes and vessels: No retroperitoneal or mesenteric adenopathy. Aorta and inferior vena cava are normal in caliber. Miscellaneous: Postsurgical changes related to presumed ventral hernia repair, with abdominal mesh. There is midline intra-abdominal postsurgical stranding and change PELVIS: Genitourinary: The bladder is decompressed therefore unremarkable. Miscellaneous: No inguinal hernias or adenopathy. Bones: No suspicious bony lesions. No vertebral body compression fractures. IMPRESSION: Mild diffuse colonic wall thickening involving the ascending and descending segments as above raising possibility of infectious/inflammatory (less likely ischemic) colitis. Trace fluid along the left paracolic gutter. Appendix at upper limits of normal in size, although no periappendiceal inflammatory change and this could be an anatomic variation in the appropriate clinical setting. Please correlate clinically. Status post cholecystectomy. No evidence of bowel obstruction. No abscess. Dictated by: Vj Kolb M.D. on 10/06/2016 at 8:55 Approved by: Vj Kolb M.D. on 10/06/2016 at 9:01 Brief History HPI obtained on 10/06 46-year-old female with multiple psychiatric disease, former math and alcohol abuser, recently finished drug rehabilitation p/w epigastric pain, dry heaves, diarrhea Patient stated that 2 weeks ago patient went to see PCP, complaining of chest pain. Therefore patient went to [facility] ED, patient underwent basic workup to rule out TN, diagnosed costochondritis. Since then patient took naproxen for a few days until 10 days ago. Yesterday, she will start noticing similar symptoms more on her epigastric area, radiated to her chest to her jaws, bilateral shoulder, her back, continued to have dry heaves, no vomiting. pain was more pressure like, pt took naproxen 500mg one tab twice day yesterday but pain continued, decided to come to ED. Pt was also resides in inpatient drug rehab in [facility] until recently but currently stayed with paraents who confirmed that pt has been really sober for her drugs, alcohols. Patient also c/o loose stools or watery diarrhea for few weeks, started 1/d but yesterday it was 3-4 times a day, brown, watery, no mucus/blood. pt also c/o suprapubic pain when urinated, mild urge, stated that she was diagnosed with interstitial cystitis, follow up . no history of heart disease and pulmonary disease. ROS: Denies fever, chills, chest pain, cough, sputum, no recent travel/sick contacts. In the emergency room, BP 140s, tachy to 108, afebrile, 100% onRA, labs were remarkable for transaminitis, elevated eulalio, LDH, PCT0.39, mild anemia, normal wbc but high poly. Hospital Course Acute dx Epigastric pain, nausea, likely due to Obstructive jaundice Initially it was thought to be acute colitis, possibly infectious, unlikely ischemic based on lactate, no watershed infarct on CT. abd CT on admission showed mild diffuse colonic wall thickening involving the ascending and descending segments. Pancreas was not enhanced as well. Although CT showed non- dilated biliary duct, normal liver parenchyma, no GB, high bilirubin was suggestive of more obstructive pattern, concerning for choledocholithiasis, probable developing biliary sepsis. Lipase was initially mildly elevated but normalized rapidly. GI/ID was consulted, pt was empirically started on Levaquin and Flagyl and Levaquin was switched to Cefepime as pt has allergy to amoxacillin(hives all over body). MRCP was obtained 10/07 which showed fluid collection in GB fossa and area adjacent to pancreatic head, which could be seroma/billoma/abscess and also intra/extra biliary duct dilatation. It's still unclear as to pt has remaining stones as no descrete filling defect on MRCP. ERCP was recommended given persistent obstructive jaundice. However, given patient's surgical hx with Petey-en-Y bypass, ERCP was not amenable at our facility, recommended transfer to tertiary hospital. pt remained HD stable but clinically worsening with persistent bilirubinemia 4.7/direct4.2 today, although LFTs are trending down. Serology for viral hepatitis were negative as well. Blood cultures were negative till date. Patient was septic but still intermittently febrile, patient was accepted by Dr.Binh Snow at [facility] and consulted with GI who agreed on transfer for high level of care. IRIS, developed since admission, Cr 0.65, trending upward to 1.54, It's thought to be due to contrast exposure from abd/pelvis CT on 10/06. NS 100cc/hr was running throughout the hospitalization. Poor IV access, please note that PICC was inserted due to poor iv access. Chronic dx Anxiety, PTSD, depression, bipolar disorder, s/p suicide attempt by overdose (x5 ), continued all of her home meds, pt was intermittently tearful, seemed emotionally unstable. hx of SBO and several abdominal surgeries, no abscess or obstruction found on CAT scan Endometriosis, continued Estradiol Exam Vital Signs (Last) Date Time Temp Pulse Resp B/P Pulse Ox O2 Delivery O2 Flow Rate FiO2 10/08/16 10:32 97 10/08/16 05:55 36.7 20 98/57 99 Room Air 10/07/16 16:30 2.00 Exam NAD, comfortably laying down on the bed no JVD, MMM, no LAD RRR, nl s1, s2 no mrg CTAB, no w,c S, diffuse tenderness more on epigastric, RUQ, LLQ, hypoactiveBS warm, no edema, pulses 2/2 Test 10/06/16 05:00 10/06/16 05:52 10/06/16 11:30 10/07/16 06:10 Reticulocyte Count,Calculated 1.5% (0.6-2.6) Prothrombin Time 10.6sec (8.1-12.5) Prothromb Time International Ratio 0.99ratio Lactic Acid Level 1.4mmol/L (0.4-2.0) Lactate Dehydrogenase 1081U/L (100-190) Total Creatine Kinase 62U/L (21-215) Hepatitis A IgM Antibody Negative (Negative) Hepatitis B Surface Antigen Negative (Negative) Hepatitis B Core IgM Antibody Negative (Negative) Hepatitis C Antibody <0.1s/co ratio (0.0-0.9) Hepatitis C Comment Comment (.) Urine Color Dark yellow (YELLOW) Urine Appearance Clear (CLEAR,HAZY) Urine pH 5.5 (5.0-8.0) Urine Specific [place] 1.025 (1.003-1.035) Urine Protein Tracemg/dL (NEG,TRACE) Urine Glucose (UA) Negativemg/dL (NEGATIVE) Urine Ketones Negativemg/dL (NEGATIVE) Urine Occult Blood Negative (NEGATIVE) Urine Nitrite Negative (NEGATIVE) Urine Bilirubin Moderate (NEGATIVE) Urine Ictotest Positive (Negative) Urine Urobilinogen 4.0mg/dL (NORMAL) Urine Leukocyte Esterase Negative (NEGATIVE) Urine RBC 0-2/hpf (0-2) Urine WBC 0-5/hpf (0-5) Urine Epithelial Cells Many/hpf (NONE-MOD) Urine Crystals None seen (NONE SEEN) Urine Bacteria Many/hpf (NONE-FEW) Urine Hyaline Casts None/lpf (NONE) Urine Granular Casts None seen (NONE SEEN) Urine Waxy Casts None seen (NONE SEEN) Urine Red Blood Cell Casts None seen (NONE SEEN) Urine White Blood Cell Casts None seen (NONE SEEN) Urine Mucus None seen (None Seen) Urine Trichomonas None seen (NONE SEEN) Urine Yeast None (NONE SEEN) Urine Culture Reflexed Indicated Urine Opiates Screen Negative Urine Methadone Screen Negative Urine Barbiturates Screen Negative Urine Amphetamines Screen Negative Urine Benzodiazepines Screen Negative Urine Cocaine Metabolite Screen Negative Urine Cannabinoids Screen Negative Haptoglobin 205mg/dL (34-200) Lipase 20U/L (13-60) Test 10/07/16 15:20 10/08/16 06:46 Iron Level 16ug/dL (35-150) Total Iron Binding Capacity 325ug/dL (250-450) Percent Iron Saturation 5%sat (15-50) Unsaturated Iron Binding 309.1ug/dL White Blood Count 6.1th/mm3 (3.8-10.1) Red Blood Count 3.54mil/mm3 (3.90-5.20) Hemoglobin 8.8g/dL (12.0-15.6) Hematocrit 30.0% (35.0-46.0) Mean Corpuscular Volume 84.7fL (81-100) Mean Corpuscular Hemoglobin 24.9pg (27.0-35.0) Mean Corpuscular Hemoglobin Concent 29.3% (32.0-37.0) Red Cell Distribution Width 16.4% (12.3-15.4) Platelet Count 182bil/L (150-400) Neutrophils (%) (Auto) 68.3% (40-74) Lymphocytes (%) (Auto) 20.2% (14-46) Monocytes (%) (Auto) 10.8% (4-12) Eosinophils (%) (Auto) 0.2% (0-5) Basophils (%) (Auto) 0.2% (0-3) Sodium Level 143mEq/L (134-144) Potassium Level 4.5mEq/L (3.5-5.2) Chloride Level 109mEq/L (97-108) Carbon Dioxide Level 20mmol/L (18-29) Blood Urea Nitrogen 31mg/dL (6-24) Creatinine 1.54mg/dL (0.57-1.00) Estimat Glomerular Filtration Rate 52mL/min (>59) Glucose Level 97mg/dL (60-99) Calcium Level 8.5mg/dL (8.5-10.1) Phosphorus Level 3.9mg/dL (2.5-4.9) Magnesium Level 2.3mg/dL (1.6-2.6) Total Bilirubin 4.7mg/dL (0.0-1.2) Direct Bilirubin 4.2mg/dL (0.0-0.3) Aspartate Amino Transf (AST/SGOT) 214U/L (0-50) Alanine Aminotransferase (ALT/SGPT) 299U/L (0-32) Alkaline Phosphatase 273U/L (25-150) Total Protein 6.1g/dL (6.4-8.4) Albumin 3.4g/dL (3.4-5.0) Procalcitonin 5.28ng/mL (0.00-0.08) Thyroid Stimulating Hormone (TSH) 3.260uIU/mL (0.450-4.500) Free Thyroxine 0.95ng/dL (0.82-1.77) Discharge Medications Discharge Medications Aripiprazole (Abilify) 10 Mg Tablet 10 MG PO DAILY (Reported) Buspirone (Buspirone) 15 Mg Tablet 15 MG PO TID (Reported) Estradiol (Estradiol) 1 Mg Tablet 1 TAB PO DAILY (Reported) Hydrochlorothiazide (Hydrochlorothiazide) 12.5 Mg Capsule 12.5 MG PO DAILY ( Reported) Levothyroxine (Levoxyl) 88 Mcg Tablet 88 MCG PO DAILY Prescribed by: BRANDON RUSH DO Sertraline HCl (Zoloft) 50 Mg Tablet 50 MG PO DAILY (Reported) Trazodone (Trazodone) 50 Mg Tablet 50 MG PO HS (Reported) As needed Naproxen Sodium (Naproxen Sodium) 550 Mg Tab 550 MG PO BID PRN PRN For Pain ( Reported) Trazodone (Trazodone) 50 Mg Tablet 12.5 MG PO Q4hr PRN PRN For Anxiety or Agitation (Reported) Followup Plan Disposition: [facility] Follow-up plan You are going to [facility] for acute intervention.. You were accepted by Dr.Patterson PATINO doctor, Dr.Lieu De Oliveira [facility] doctor. Please continue to follow with the doctors at [facility] Time spent 65min Colleen Arana MD Oct 08, 2016 12:03 Dr.Patterson PATINO doctor, Dr.Lieu De Oliveira [facility] doctor. Please continue to follow with the doctors at [facility] Time spent 65min Colleen Arana MD Oct 08, 2016 12:03
[2016-10-08] MEDS: ARIPiprazole 10 mg Tablet PO SCH (12:12)
[2016-10-08] MEDS: Ondansetron 2 mg/mL 2 mL Inj IVPUSH PRN (12:26)
--- NOTE | 2016-10-08 13:19 | NUR ---
Social Work: Discharge Per MD note, pt transferred to a different hospital. No further d/c planning needs. DELANO Howe
[2016-10-08 14:00] VITALS: BP 128/75; PULSE 92; RESP 20; O2SAT 96
[2016-10-08 15:01] VITALS: BP 121/83; PULSE 87; RESP 18
--- NOTE | 2016-10-08 15:30 | NUR ---
DISCHARGE PATIENT DISCHARGE VIA EMT AND WILL TRANSFER CARE TO [facility] FOR FURTHER TREATMENT AND EVALUATION. REPORT GIVEN TO VERITO EMT NURSE, WITH PICC LINE IN PLACE NS @ 100 ML/HR AND ANTIBIOTIC INFUSING. DILAUDID 1 MG IV AND TRAZODONE 12.5MG PRN GIVEN BEFORE TRANSPORT. REPORT TO [facility] GIVEN, PT IS GOING TO BE ADMITTED TO [address]. PATIENT EXPRESSED GRATITUDE OF THE CARE RENDERED TO HER DURING HER STAY WITH US.
--- NOTE | 2016-10-08 18:42 | CONS ---
[address] [address] CONSULTATION REPORT PATIENT: AARON KUMARI : 1970 MR#: [id number] ADMIT: 10/06/2016 JOB ID: [id number] DATE OF SERVICE: 10/08/2016 CHIEF COMPLAINT: This is a 46-year-old woman with epigastric pain in the setting of elevated liver function tests. This consultation is requested by Colleen Arana MD. HISTORY OF PRESENT ILLNESS: This is a 46-year-old woman who presented to this hospital two days ago with severe epigastric pain. She was also noted to have elevated liver function tests including a bilirubin of 3.7 on admission. This indigo to a bilirubin of 4.7. She underwent a CT scan of the abdomen upon arrival which showed mild diffuse colonic wall thickening, trace fluid along the left paracolic gutter, appendix at the upper limits of normal, no evidence of bowel obstruction, no abscess, status post cholecystectomy. Due to her liver function tests, an MRCP was performed which showed dilated intrahepatic and extrahepatic biliary ducts. The read on the MRCP reported status post cholecystectomy with a small fluid collection in the gallbladder fossa with a wide differential. There was a small amount of fluid adjacent to the head of the pancreas which could be directing down from the gallbladder fossa or reflecting pancreatitis. Lipase was 99 on admission but 20 yesterday. I was consulted to comment on the small amount of fluid that was noted on the MRCP in the gallbladder fossa. The patient's cholecystectomy was many years ago. She also has an extensive past surgical history including Petey-en-Y gastric bypass. PAST MEDICAL HISTORY: 1. History of methamphetamine and alcohol abuse. Status post recent drug rehabilitation. 2. History of recurrent pancreatitis including three episodes in the last seven years. 3. Bipolar disorder. 4. PTSD. 5. Depression. PAST SURGICAL HISTORY: 1. Laparoscopic cholecystectomy in late /early at [facility]. 2. Laparoscopic Petey-en-Y gastric bypass in 2006, prior to which she weighed 405 pounds. 3. She reports a history of surgery for a bowel obstruction which required adhesiolysis and she thinks some bowel may have been resected. 4. She reports a history of sigmoid colectomy but she is not sure why. 5. Umbilical hernia repair x2, at least one repair included mesh. 6. Hysterectomy. 7. She reports eight operations for endometriosis including open and laparoscopic. MEDICATIONS: Current medications are reviewed and include cefepime, Lovenox, Abilify, estradiol, sertraline, hydrochlorothiazide, Flagyl, trazodone, Dilaudid, pantoprazole, buspirone, levothyroxine, trazodone, Zofran. ALLERGIES: Reviewed. SOCIAL HISTORY: She has been off of alcohol and methamphetamines for several weeks after her rehabilitation stay. She is present with her boyfriend today. Her father is a retired auto cleaner who I spoke with on the phone today regarding her condition. FAMILY HISTORY: Reviewed and noncontributory. REVIEW OF SYSTEMS: Eleven point review of systems positive for abdominal discomfort, chest discomfort, back discomfort, and otherwise negative. PHYSICAL EXAMINATION: Temperature 36.7, heart rate 92, blood pressure 98/57, respiratory rate of 20, saturation 99% on room air. General: Awake and alert, mild distress. Head: Normocephalic. Neck: Supple. Cardiac: Regular rate and rhythm. Respiratory: Breathing easily on room air. Abdomen: Soft, diffusely tender particularly in the upper quadrants, no rebound or guarding, no distention. Extremities: No edema. Psychiatric: She appears anxious. Neurologic: No gross deficits. LABORATORY DATA: Total bilirubin is 4.7, direct is 4.2, AST was 214, ALT 299, alkaline phosphatase 273. Basic metabolic panel is within normal limits with exception of BUN of 31, and creatinine of 1.54. On admission, her bilirubin level was 3.7, direct was 1.6. AST was 852, ALT 554, alkaline phosphatase 282. White blood cell count currently is 6.1, hematocrit 30, platelets 182. INR 0.99. Hepatitis A IgM antibody is negative. Hepatitis BS antigen, and hepatitis B core IgM antibody are negative. Hepatitis C antibody measures less than 0.1 S/CO ratio, with normal being 0.0-0.9. Hepatitis E IgM antibody is pending. IMAGING: Images from the CT scan of the abdomen are personally reviewed and showed an absent gallbladder. The radiologist's impression is mild diffuse colonic wall thickening with trace fluid along the left paracolic gutter, without evidence of bowel obstruction and no abscesses. MRCP images are personally reviewed with the radiologist. Although the radiologist's report notes there may be a small seroma, biloma, etc in the gallbladder fossa, on close review it may be a small portion of retained gallbladder infundibulum which has been present for nearly 20 years. There is diffuse intrahepatic and extrahepatic biliary ductal dilation with discrete filling defect at the ampulla. ASSESSMENT: A 46-year-old woman with a history of Petey-en-Y gastric bypass and cholecystectomy who presents with biliary obstruction at the ampulla. I recommend ERCP. This is difficult to perform in a patient with a history of Petey-en-Y gastric bypass. Although a surgical approach could be considered, this would be very high morbidity in a patient who reports approximately 15 previous abdominal operations, and therefore ERCP should be attempted first. I discussed this with our building energy retrofit technician, Dr. Bryant, who did not feel that the ampulla would be accessible using resources at this hospital, given the length needed to get to it through her Petey limb. Therefore, I recommend transfer to a tertiary facility with the capabilities of performing ERCP in patients with history of Petey-en-Y gastric bypass. With regards to this possible fluid collection in the gallbladder fossa, it appears to me that she has a very small portion of retained infundibulum from her cholecystectomy which was performed as an emergency, and I believe it is not contributing to her current symptoms. However, surgical consult may be warranted after ERCP depending on findings, as it is possible that the retained infundibulum is the source of stones, if stones are what are causing her biliary obstruction.
== END 2016-10-08 15:30 | disposition short-term general hospital (02) | DRG 444 ==
LOC: SED 03:33 → MOC 09:30 → UNDOADMOB 09:30 → MOC 09:42 → OBSVTOIN 09:52 → MOC 09:52
PROVIDERS: ADMIT Internal Medicine; ATTEND Internal Medicine
DX: K83.0 Cholangitis (principal); K83.1 Obstruction of bile duct; A41.9 Sepsis, unspecified organism; Z68.42 Body mass index [BMI] 45.0-49.9, adult; N17.9 Acute kidney failure, unspecified; E66.01 Morbid (severe) obesity due to excess calories; E03.9 Hypothyroidism, unspecified; D64.9 Anemia, unspecified; F41.9 Anxiety disorder, unspecified; F31.9 Bipolar disorder, unspecified; Z98.84 Bariatric surgery status